=== PATIENT | female | born 2000 | race Two or more races ===

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

== ENCOUNTER 2019-07-09 14:30 | Emergency (ER) | payer OTHER ==
[~2019-07-09] VITALS: Ht 149.9 cm; Wt 59.9 kg
[~2019-07-09 14:30] MED LIST changes: +ONDA4TAB6 PO
[2019-07-09] MEDS ORDERED: FLON1SPR NARES (15:58)
[2019-07-09] MEDS ORDERED: PSEU30TA85 PO (15:58)
[2019-07-09] MEDS ORDERED: AZITHROMYCIN 250 MG TAB PO ONE (16:00)
[2019-07-09 16:15] VITALS: BP 126/72
[2019-07-10] MEDS ORDERED: VALA1TAB64 PO (20:02)
== END 2019-07-09 16:18 | disposition home or self-care (01) ==
LOC: M ED 14:30
DX: N76.5 Ulceration of vagina (principal); J02.9 Acute pharyngitis, unspecified; B34.9 Viral infection, unspecified

== ENCOUNTER 2019-07-10 19:34 | Emergency (ER) | payer OTHER ==
[~2019-07-10] VITALS: Ht 149.9 cm; Wt 59.1 kg
[~2019-07-10 19:34] MED LIST changes: +FLON1SPR NARES; +PSEU30TA85 PO
[2019-07-10] MEDS ORDERED: VALA1TAB64 PO (20:02)
[2019-07-10] MEDS ORDERED: valACYclovir HCL 500 MG TAB PO ONE (20:15)
[2019-07-10 20:30] VITALS: BP 133/82
--- NOTE | 2019-07-11 18:40 | ECGEPIP ---
[facility] - ED Test Date: 2019-07-10 Pat Name: AYLEEN SHELTON Department: Room: - Gender: Female Manager Welding: FISH : 2000 Requested By: LALO EARLY Order Number: [id number] Reading MD: Babar Butcher Measurements Intervals [place] Rate: 112 P: 64 OR: 125 QRS: 56 QRSD: 70 T: 35 QT: 295 QTc: 403 Interpretive Statements SINUS TACHYCARDIA NO PRIORS FOR COMPARISON Electronically Signed on 07-11-2019 18:39:39 EST by Babar Butcher
== END 2019-07-10 21:15 | disposition home or self-care (01) ==
LOC: M ED 19:34
DX: J06.9 Acute upper respiratory infection, unspecified (principal); B34.9 Viral infection, unspecified; Z20.2 Contact with and (suspected) exposure to infections with a predominantly sexual mode of transmission; H65.03 Acute serous otitis media, bilateral; R00.0 Tachycardia, unspecified

== ENCOUNTER 2019-08-02 18:03 | Emergency (ER) | payer OTHER ==
[~2019-08-02] VITALS: Ht 149.9 cm; Wt 60.7 kg
[~2019-08-02 18:03] MED LIST changes: +VALA1TAB5 PO
[2019-08-02] MEDS ORDERED: ZOVI5CRE4 TOP (20:43)
[2019-08-02] MEDS ORDERED: PRED20TA PO (20:43)
[2019-08-02 21:04] VITALS: BP 121/69
== END 2019-08-02 21:05 | disposition home or self-care (01) ==
LOC: M ED 18:03
DX: B09 Unspecified viral infection characterized by skin and mucous membrane lesions (principal)

== ENCOUNTER 2020-11-06 15:43 | Emergency (ER) | payer OTHER ==
[~2020-11-06] VITALS: Ht 149.9 cm; Wt 58.2 kg
[~2020-11-06 15:43] MED LIST changes: +PRED20TA PO; +ZOVI5CRE4 TOP
[2020-11-06 16:51] LABS: BASO % 0.4 % (0.0-1.0); EOS # 0.1 10^3/uL (0.0-0.5); EOS % 1.4 % (0.0-3.0); HEMATOCRIT 37.6 % (36.0-47.0); LYMPH # 3.1 10^3/uL (1.5-5.0); LYMPH % 33.9 % (24.0-44.0); MEAN CORPUSCULAR HEMOGLOBIN 31.1 pg (27.0-33.0); MEAN CORPUSCULAR HGB CONC 34.6 g/dl (32.0-36.5); MONO # 0.6 10^3/uL (0.0-0.8); MONO % 6.3 % (2.0-8.0); NEUTROPHILS # 5.2 10^3/uL (1.5-8.5); NEUTROPHILS % 57.8 % (36.0-66.0); PLATELET COUNT, AUTOMATED 296 10^3/uL (150-450); RED BLOOD COUNT 4.18 10^6/uL (4.00-5.40); WHITE BLOOD COUNT 9.1 10^3/uL (4.0-10.0)
[2020-11-06 17:24] LABS: ALBUMIN 4.1 GM/DL (3.2-5.2); BILIRUBIN,DIRECT 0.1 MG/DL (0.0-0.2); BILIRUBIN,TOTAL 0.4 MG/DL (0.2-1.0); TOTAL PROTEIN 7.4 GM/DL (6.4-8.2)
--- NOTE | 2020-11-06 18:53 | REP ---
INDICATION: L pelvic pain, hx of ovarian cysts COMPARISON: None. TECHNIQUE: Transabdominal pelvic ultrasound with color Doppler evaluation of the ovaries. FINDINGS: Bladder is unremarkable and measures 7.3 x 8.7 x 5.3 cm. Normal anteverted uterus measures 9.5 x 3.9 x 4.9 cm. The endometrial complex measures 10 mm thickness. No discrete uterine or endometrial abnormalities are appreciated. Bilateral ovaries are normal in appearance and vascularity without evidence for torsion. Right ovary measures 3.3 x 1.6 x 2.2 cm; R I = 0.67. Left ovary measures 3.1 x 1.5 x 2.3 cm; R I = 0.52. Trace amount of free fluid in the pelvis likely physiologic. IMPRESSION: Normal pelvic ultrasound. <Electronically signed by Pipe Bates > 11/06/20 [id number]
[2020-11-06 19:35] LABS: CHLAMYDIA DNA AMPLIFICATION POSITIVE (NEGATIVE); GC DNA AMPLIFICATION NEGATIVE (NEGATIVE)
[2020-11-06] MEDS ORDERED: metroNIDAZOLE (FLAGYL) 500MG TABLET PO ONE (19:55)
[2020-11-06 20:00] VITALS: BP 128/78
[2020-11-06] MEDS ORDERED: DOXYCYCLINE HYCLATE 100MG TABLET PO ONE (20:00)
[2020-11-06] MEDS ORDERED: DOXY100C37 PO (20:09)
[2020-11-06] MEDS ORDERED: FLAG500T PO (20:09)
== END 2020-11-06 20:33 | disposition home or self-care (01) ==
LOC: M ED 15:43
DX: A74.9 Chlamydial infection, unspecified (principal); N76.0 Acute vaginitis; F17.200 Nicotine dependence, unspecified, uncomplicated; Z87.42 Personal history of other diseases of the female genital tract; Z84.2 Family history of other diseases of the genitourinary system

== ENCOUNTER 2021-01-08 07:25 | Emergency (ER) | payer OTHER ==
[~2021-01-08] VITALS: Ht 149.9 cm; Wt 57.2 kg
[~2021-01-08 07:25] MED LIST changes: +DOXY1CAP62 PO; +FLAG500T PO
[2021-01-08 07:26] VITALS: BP 128/82
[2021-01-08] MEDS ORDERED: ACETAMINOPHEN 325 MG TAB PO ONE (10:55)
[2021-01-08 11:47] LABS: RSV AMPLIFICATION NEGATIVE (NEGATIVE)
== END 2021-01-08 11:04 | disposition home or self-care (01) ==
LOC: M ED 07:25
DX: R09.81 Nasal congestion (principal); R05 Cough; R51.9 Headache, unspecified

== ENCOUNTER 2021-05-18 10:47 | Emergency (ER) | payer OTHER ==
[~2021-05-18] VITALS: Ht 149.9 cm; Wt 60.5 kg
[~2021-05-18 10:47] MED LIST changes: +DOXY-443 PO; -DOXY1CAP62 PO; -PSEU30TA85 PO; +PSEU30TA86 PO
--- OUTSIDE RECORDS SUMMARY | 2021-05-18 10:53 | CCD ---
Author Author [facility] Organization [facility] Address Unknown Phone Unavailable Support Name Relationship Address Phone GARRY CASTILLO Next Of Kin [id number] [place], [place] [id number] [facility] Next Of Kin [address] [place] [address] Unavailable RAGINI SHELTON Next Of Kin [address] [place] [address] Re-disclosure Warning The records that you are about to access may contain information from federally-assisted alcohol or drug abuse programs. If such information is present, then the following federally mandated warning applies: This information has been disclosed to you from records protected by federal confidentiality rules (42 CFR part 2). The federal rules prohibit you from making any further disclosure of this information unless further disclosure is expressly permitted by the written consent of the person to whom it pertains or as otherwise permitted by 42 CFR part 2. A general authorization for the release of medical or other information is NOT sufficient for this purpose. The Federal rules restrict any use of the information to criminally investigate or prosecute any alcohol or drug abuse patient.The records that you are about to access may contain highly sensitive health information, the redisclosure of which is protected by Article 27-F of the [facility] Public Health law. If you continue you may have access to information: Regarding HIV / AIDS; Provided by facilities licensed or operated by the [facility] Office of Mental Health; or Provided by the [facility] Office for People With Developmental Disabilities. If such information is present, then the following [facility] mandated warning applies: This information has been disclosed to you from confidential records which are protected by state law. State law prohibits you from making any further disclosure of this information without the specific written consent of the person to whom it pertains, or as otherwise permitted by law. Any unauthorized further disclosure in violation of state law may result in a fine or snf sentence or both. A general authorization for the release of medical or other information is NOT sufficient authorization for further disc losure. Immunizations Vaccine Date Status Description Data Source(s) COVID-19 VACCINE Moderna 11/28/2020 12:00:00 AM EDT completed [facility] Vaccine Series Complete: YESThis Data wa s Submitted to [facility] Via [employer]. COVID-19 VACCINE Moderna 10/31/2020 12:00:00 AM EDT completed [facility] Vaccine Series Complete: NOThis Data was Submitted to [facility] Via [employer]. Medications No Information Insurance Providers Payer name Policy type / Coverage type Policy ID Covered green party ID Covered green party's relationship to kaur Policy Kaur Plan Information [facility] ACTIVE DUTY [id number] SP [id number] SELF PAY O [id number] S [id number] Problems, Conditions, and Diagnoses No Information Surgeries/Procedures No Information Results ID Date Data Source [id number] 01/08/2021 10:52:00 AM EDT [facility] Name Value Range Interpretation Code Description Data Rosemarie rce(s) Supporting Document(s) SARS coronavirus 2 RNA [Presence] in Res piratory specimen by MARNIE with probe detection NEGATIVE [facility] This lab was ordered by [facility] a nd reported by . Procedure Social History No Information
[2021-05-18] MEDS ORDERED: PREN27TA3 PO (11:20)
--- NOTE | 2021-05-18 13:07 | REP ---
INDICATION: 17 weeks preg, severe cramping in pelvis no bleeding. COMPARISON: None. TECHNIQUE: Limited transabdominal pelvic sonography. Placental position. FINDINGS: Scanning through the gravid uterus demonstrates a viable single intrauterine gestation in transverse lie. motion is observed and heart rate is recorded at 146 beats per minute. A anterior placenta is seen, grade 0, without evidence of placenta previa. Closed cervical length is measured at 4.6 cm cm transabdominally. No extrauterine abnormality is observed. Amniotic fluid is subjectively normal. The inferior tip of the placenta is 3.7 cm from the internal cervical os on sagittal imaging.. IMPRESSION: Viable single intrauterine gestation. Anterior grade 0 placenta terminates 3.7 cm above the internal cervical os. heart rate 146 beats per minute. Limited obstetric scanning. <Electronically signed by Randall Lam > 05/18/21 [id number]
--- OUTSIDE RECORDS SUMMARY | 2021-05-18 13:11 | CCD ---
Author Author [facility] Organization [facility] Address Unknown Phone Unavailable Support Name Relationship Address Phone GARRY CASTILLO Next Of Kin [address] [place], [place] [phone] [facility] Next Of Kin [address] [place] [address] Unavailable RAGINI SHELTON Next Of Kin [address] [place] [address] Re-disclosure Warning The records that [...] is protected by Article 27-F of the [facility] Public Health law. If you continue you may have access to information: Regarding HIV / AIDS; Provided by facilities licensed or operated by the [facility] Office of Mental Health; or Provided by the [facility] Office for People With Developmental Disabilities. If such information is present, then the following [facility] mandated warning applies: This information has [...] law may result in a fine or group home sentence or both. A general authorization for the release of medical or other information is NOT sufficient authorization for further disc losure. Immunizations Vaccine Date Status Description Data Source(s) COVID-19 VACCINE Moderna 11/28/2020 12:00:00 AM EDT completed [place] Vaccine Series Complete: YESThis Data wa s Submitted to [facility] Via [employer]. COVID-19 VACCINE Moderna 10/31/2020 12:00:00 AM EDT completed [place] Vaccine Series Complete: NOThis Data was Submitted to [facility] Via [employer]. Medications No Information Insurance Providers Payer name Policy type / Coverage type Policy ID Covered alliance party ID Covered alliance party's relationship to kaur Policy Kaur Plan Information [facility] ACTIVE DUTY [id number] SP [id number] SELF PAY O [id number] S [id number] Problems, Conditions, and Diagnoses No Information Surgeries/Procedures No Information Results ID Date Data Source [id number] 01/08/2021 10:52:00 AM EDT [facility] Name Value Range Interpretation Code Description Data Rosemarie rce(s) Supporting Document(s) SARS coronavirus 2 RNA [Presence] in Res piratory specimen by MARNIE with probe detection NEGATIVE [facility] This lab was ordered by [facility] a nd reported by [facility]. Procedure Social History No Information
[2021-05-18 13:32] VITALS: BP 112/63
--- NOTE | 2021-05-19 07:52 | ED PDOC ---
Post-Departure Follow-Up radiology report faxed to Ara Cohen MD May 19, 2021 07:52
== END 2021-05-18 13:33 | disposition home or self-care (01) ==
LOC: M ED 10:47
DX: O26.892 Other specified pregnancy related conditions, second trimester (principal); R10.9 Unspecified abdominal pain; Z3A.17 17 weeks gestation of pregnancy; Z87.42 Personal history of other diseases of the female genital tract; Z86.19 Personal history of other infectious and parasitic diseases